=== PATIENT | female | born 1955 | race Caucasian/White ===

== ENCOUNTER 2016-09-17 07:11 | Day surgery (SDC) | payer BC ==
[~2016-09-17] VITALS: Ht 161.3 cm; Wt 68.0 kg
[~2016-09-17 07:11] MED LIST: ASPI-558 PO; ATOR20TA59 PO; FLUT16SP12 NS; LIDOCAINE 1% (10mg/ml) 2ml SDV INJ ONE; LORA-326 PO; MELO-273 PO; MULT1CAP47 PO; NORMAL SALINE 1,000 ML IV ONE; OMEP20CA10 PO
--- OUTSIDE RECORDS SUMMARY | 2016-09-17 07:16 | XMS REPORT | Continuity of Care Document ---
Author Author ROSSANA [facility] Organization [facility] Address Unknown Phone Unavailable Support Name Relationship Address Phone VIKTORIA ARROYO MD Caregiver [address] [place] [address] [place] [address] Unavailable SUSANNAH JIMENEZ FACS, MD Caregiver [address] [place] [address] [place] [address] Unavailable TULIO MOORE Next Of Kin [address] [place], [place] [id number] Insurance Providers Guarantor Angel Luis Moore Address [address] [place] [id number] Email DENIED/NO TO PORTAL Payer [facility] Policy Number [id number] Subscriber's Name Tulio Moore Relationship 01 Spouse Group Number [id number] Advance Directives Directive Response Recorded Date/Time Dr Chung Resuscitation Status Full Code 03/01/16 2:15pm Resuscitation Documents on File No 03/02/16 6:57am DPOA for Healthcare Only Yes 03/02/16 6:57am Living Will Yes 03/02/16 6:57am Problems No problem information available. Medications Current Home Medications Medication Dose Units Route Directions Days Qty Instructions Start Date Aspirin (Aspir 81) 81 Mg Tablet. 81 Mg Oral Daily 09/24/08 Atorvastatin Calcium 20 Mg Tablet 1 Tab Oral Bedtime 30 03/01/16 Fluticasone Propionate (Flonase) 16 Gm Ronceverte.susp 16 Gm Nasal Daily 09/24/08 Loratadine (Claritin) 10 Mg Tablet 10 Mg Oral As Needed 09/24/08 Meloxicam 7.5 Mg Tablet 1 Tab Oral Twice A Day 180 03/01/16 Multivitamins W-Minerals (Multivitamin) 1 Cap Capsule 1 Cap Oral Daily 09/24/08 Omeprazole 20 Mg Capsule. 1 Cap Oral Daily 90 03/01/16 Social History Social History Problem Response Recorded Date/Time Onset Date Status Reason for Hospitalization COLONOSCOPY 03/02/2016 9:55am Not Applicable Not Applicable Chewing Tobacco Status No 03/02/2016 7:04am Not Applicable Not Applicable Hx Substance Use No 03/02/2016 7:04am Not Applicable Not Applicable Hx Alcohol Use Y 1X/WEEK 03/02/2016 7:04am Not Applicable Not Applicable Has the pt used tobacco in the last 12 months No 03/02/2016 7:04am Not Applicable Not Applicable Query Response Start Date Stop Date Smoking Status Never smoker Hospital Discharge Instructions Instructions: Care Instructions: I was in the hospital because (patient own words): COLONOSCOPY Discharge Diet: As Tolerated Discharge Activity: Do NOT drive today Follow Up Appointments: Follow up with Dr. Jimenez as needed. Pending Lab / Results: Will be notified Patient Instructions: If biopsies performed during colonoscopy, results/recommendations will be mailed in about 2-3 weeks. If additional treatment is recommended, will call with recommendatins. Expected Signs/Symptoms: None Notify Physician If: Call physician if temperature is GREATER than 101.5, severe abdominal pain or severe rectal bleeding. During Business Hours:: Call [phone] After Business Hours:: Call [phone] (hospital) Pain Management/Treatment: Call Dr. Jimenez if increasing abdominal pain Wound/Incision Care: N/A Condition at time of discharge: Good Plan of Care Discharge Date 03/02/16 10:29am Instructions/Education Provided [facility] Prescriptions See Medication Section Functional Status Query Response Date Recorded Ability to complete ADL's impeded by No change March 02, 2016 6:57am Allergies, Adverse Reactions, Alerts Allergen Type Severity Reaction Status Last Updated Penicillin Allergy Intermediate RASH Active 09/23/08 Immunizations Query Response on File Recorded Date/Time Hx Influenza Vaccination No 03/02/16 7:04am Hx Pneumococcal Vaccination No 03/02/16 7:04am Hx Influenza Vaccination No 03/02/16 7:04am Vital Signs Acute Vital Signs Vital Response Date/Time Temperature (Fahrenheit) 97.4 deg F (96.8 - 99.1) 03/02/2016 9:50am Temperature (Calculated Celsius) 36.44816 degrees C (36.0 - 37.3) 03/02/2016 9:50am Temperature Source Temporal 03/02/2016 9:50am Pulse Rate (adult) 82 bpm (60 - 100) 03/02/2016 10:20am Respiratory Rate 15 breaths/min (10 - 20) 03/02/2016 10:20am O2 Sat by Pulse Oximetry 95 % (90 - 100) 03/02/2016 10:20am Oxygen Delivery Method Room Air 03/02/2016 10:20am Oxygen Flow Rate 6.00 L/min 03/02/2016 9:50am Blood Pressure 161/90 mm Hg 03/02/2016 10:20am Blood Pressure Source Automatic Cuff 03/02/2016 10:20am Height (Feet) 5 feet 03/02/2016 6:41am Height (Inches) 4.00 inches 03/02/2016 6:41am Weight (Kilograms) 78.200 kg 03/02/2016 6:41am Body Mass Index (BMI) 29.6 03/02/2016 6:41am Results No known relevant diagnostic tests, laboratory data and/or discharge summary. Procedures Procedure Status Date Provider(s) Colonoscopy Completed 03/02/16 SUSANNAH JIMENEZ MD, JHONNY, ALFREDO Encounters Encounter Location Arrival/Admit Date Discharge/Depart Date Attending Provider Departed [facility] 03/02/16 6:26am 03/02/16 10 :29am SUSANNAH JIMENEZ FACS, MD
--- OUTSIDE RECORDS SUMMARY | 2016-09-17 07:16 | XMS REPORT | Continuity of Care Document ---
Author Author [facility] Organization [facility] Address Unknown Phone Unavailable Allergies Medications Problems Procedures Results Encounters ACCT No. Visit Date/Time Discharge Status Pt. Type Provider Facility Loc./Unit Complaint [id number] 06/25/2013 08:52:00 06/25/2013 23 :59:59 [facility] Outpatient [id number] 05/20/2013 09:24:00 05/20/2013 23 :59:59 [facility] Outpatient
--- OUTSIDE RECORDS SUMMARY | 2016-09-17 07:16 | XMS REPORT | Referral Summary ---
Author Author [facility], [facility] Organization [facility] Address Unknown Phone Unavailable Care Team Providers Care Boiler Fitter Name Role Phone Pilarann marie Solomon Primary Care Physician [phone] Encounter Date(s): 05/15/16 - 05/15/16 [facility], [address] [place] [address] Discharge Diagnosis: Osteoarthritis Discharge Diagnosis: GERD (gastroesophageal reflux disease) Discharge Diagnosis: Hyperlipidemia Discharge Disposition: 01-Home or Self Care Attending Physician: Jimena Washington PA-C Admitting Physician: Jimena Washington PA-C Vital Signs Most recent to 1 oldest [Reference Range]: Apical Heart Rate 89 bpm [60-100 bpm] (05/15/16 9:04 AM) Blood Pressure 134/90 mmHg [90-140/60-90 mmHg] (05/15/16 9:04 AM) SpO2 97 % (05/15/16 9:04 AM) Problem List Condition Effective Dates Status Health Status Informant Solitary Active kidney(Confirmed) Elevated blood Active pressure(Confirmed) Endometriosis(Confir Active med) GERD Active (gastroesophageal reflux disease)(Confirmed) Hyperlipidemia(Confi Active rmed) Obesity(Confirmed) Active patient Osteoarthritis(Confi Active rmed) Allergies, Adverse Reactions, Alerts Substance Reaction Severity Status penicillin Active Medications Aspir 81 mg, Oral, Daily, 0 Refill(s) Start Date: 10/14/15 Status: Ordered atorvastatin 20 mg oral tablet 20 mg 1 tabs, Oral, Daily, # 90 tabs, 3 Refill(s), Pharmacy: [facility], 1 tabs Oral Daily Start Date: 05/15/16 Status: Ordered Benadryl See Instructions, 0 Refill(s) Start Date: 10/14/15 Status: Ordered Flonase 50 mcg/inh nasal spray 1 sprays, Nasal, BID, # 16 g, 0 Refill(s) Start Date: 08/06/14 Status: Ordered meloxicam 7.5 mg oral tablet 7.5 mg 1 tabs, Oral, BID, # 180 tabs, 1 Refill(s), Pharmacy: [facility], 1 tabs Oral BID Start Date: 05/15/16 Status: Ordered omeprazole 20 mg oral delayed release capsule 20 mg 1 caps, Oral, Daily, fax to [facility] at [phone], # 90 caps, 3 Refill(s), 1 caps Oral Daily,x90 days Start Date: 11/18/15 Status: Ordered Results No data available for this section Immunizations No data available for this section Procedures Procedure Date Related Diagnosis Body Site Colonoscopic polypectomy1 03/02/16 Colonoscopy 09/24/08 Colonoscopy TALYA/BSO 1Large tubular adenoma had to be "piecemealed out" at 10 centimeters. Recommend repeat colonoscopy in 6-12 months. Father and sister both positive for colon cancer. Social History Social History Type Response Smoking Status Never smoker Assessment and Plan Extracted from: Title: Office Visit Note- Med ck Author: Jimena Washington PA-C Date: Assessment/Plan GERD (gastroesophageal reflux disease) Continue on Prilosec at this time. Recheck in October at [facility]. Ordered: Periodic Comp Preventive Med 40 to 64 years Est [address] Hyperlipidemia Refilled Lipitor today. She would like to checkfasting labs at her [employer] in October. Continueto watch diet. Continue with baby ASA. Ordered: atorvastatin, 20 mg 1 tabs, Oral, Daily, # 90 tabs, 3 Refill(s), Pharmacy: [facility], 1 tabs Oral Daily Periodic Comp Preventive Med 40 to 64 years Est [address] Osteoarthritis May continue with Mobic. Refillssent. Ordered: meloxicam, 7.5 mg 1 tabs, Oral, BID, # 180 tabs, 1 Refill(s), Pharmacy: [facility], 1 tabs Oral BID Periodic Comp Preventive Med 40 to 64 years Est [address]
[2016-09-17 07:26] VITALS: BP 163/87; PULSE 75; RESP 13; TEMP 98.2; O2SAT 97; Ht 161.3 cm; Wt 68.0 kg
[2016-09-17] MEDS ORDERED: DIPH25CA84 PO (07:39)
[2016-09-17] MEDS ORDERED: LACT1CAP72 PO (07:39)
[2016-09-17] MEDS ORDERED: LYSI500T PO (07:39)
--- NOTE | 2016-09-17 08:41 | ANESPREOP ---
Anesthesia Record Date and Time DATE: 09/17/16 TIME: 08:39 Pre-Op Diagnosis hx of polyps Proposed Surgical Procedure COLONOSCOPY Allergies: Coded Allergies: Penicillins (Verified Allergy, Intermediate, RASH, 09/17/16) Ht/Wt/BMI Height: 5 ' 3.50 " Weight: 68.000 kg BMI: 26.1 kg/m2 Vital Signs Date Time Temp Pulse Resp B/P Pulse Ox O2 Delivery O2 Flow Rate FiO2 09/17/16 07:26 98.2 75 13 163/87 97 Room Air Medications Aspirin (Aspir 81) 81 Mg Tablet.dr, 81 MG PO DAILY, (Reported) Last Taken: on 09/09/16699 Atorvastatin Calcium (Atorvastatin Calcium) 20 Mg Tablet, 1 TAB PO HS, (Reported) Last Taken: on 09/16/162214 Diphenhydramine HCl (Benadryl) 25 Mg Capsule, 1 CAP PO HS PRN for PRN ORDERS, (Reported) Last Taken: on 09/16/162214 Fluticasone Propionate (Flonase) 16 Gm [place].susp, 16 GM NS DAILY, (Reported) Last Taken: on 09/16/16699 Lactobacillus Combo No.11 (Probiotic) 1 Each Cap.sprink, 1 TAB PO DAILY, (Reported) Last Taken: on 09/16/16699 Loratadine (Claritin) 10 Mg Tablet, 10 MG PO PRN , (Reported) Last Taken: on Unknown Date & Time Lysine (l-Lysine) 500 Mg Tablet, 1,000 MG PO DAILY, (Reported) Take 1 tablet, by mouth, 2 times a day. Last Taken: on 09/16/16699 Meloxicam (Meloxicam) 7.5 Mg Tablet, 1 TAB PO BID, (Reported) Last Taken: on 09/16/16699 Multivitamins W-Minerals (Multivitamin) 1 Cap Capsule, 1 CAP PO DAILY, (Reported) Last Taken: on 09/09/16 Omeprazole (Omeprazole) 20 Mg Capsule.dr, 1 CAP PO DAILY, (Reported) Last Taken: on 09/16/16699 Currently on Beta Kimberlee: No Medical/Surgical History Anesthesia PMH: Reports: *Hypertension (PER H&P-PT DENIES), Arthritis (OA PER H &P), Hyperlipidemia, Pneumonia (HX OF 1982), Reflux (PER H&P), Renal Disease ( SOLITARY KIDNEY PER H&P), Denies: Anesthesia Reactions (NO AIRWAY ISSUES), Cancer, Glaucoma, Malignant Hyperthermia, Sleep Apnea Smoking Status: Never smoker Has pt. smoked today?: No Use Chewing Tobacco?: No Second Hand Exposure: No Substance Use Type: does not use Substance last used: unknown Alcohol Intake: none Past Surgical History Orthopedic Surgeries: Yes - L FOOT BONE SPURR REMOVED Abdominal Surgeries: Yes - ABD. HYST. PER H&P Genitourinary Surgeries: Cardiac Surgeries: Endocrine Surgeries: Reproductive Surgeries: Yes - TALYA BSO PER H&P Neurological Surgeries: Ear Surgeries: Nose Surgeries: Throat Surgeries: - T+A Other Surgeries: Yes - COLONOSCOPY PER H&P Anesthesia Adverse Reactions: FOUND none Family Hx of Anesthesia Advers: none Hx of Motion Sickness: Yes Pertinent Findings EKG Rhythm: Sinus Rhythm Physical Exam Respiratory: Bilat breath sounds equal, Lungs clear Cardiovascular: FOUND Regular rate, rhythm, FOUND No murmur Airway Assessment Mallampati Score: II TMD: 3 Fingerbreadths Neck Extension: Good Overall Assessment: No Airway Concerns ASA: 2 Plan Anesthesia Plan: TIVA Discussion Discussed risks/options/alternatives of anesthesia and questions answered. Patient consents. Nursing pain assessment noted. Present: Spouse Attestation Statement Prior to the delivery of any anesthetic medication, I examined the patient, developed the plan, obtained the patient's consent and discussed the risk and benefits of the procedure with the patient/guardian. SLOAN CELESTE CRNA September 17, 2016 08:41
[2016-09-17] MEDS ORDERED: PROPOFOL 200mg 20 ML IV ONE (09:15)
[2016-09-17] MEDS ORDERED: LIDOCAINE 1% (10mg/ml) 2ml SDV ONE (09:15)
[2016-09-17] MEDS ORDERED: FENTANYL 100mcg/2ml INJECTION ONE (09:24)
[2016-09-17 09:34] VITALS: BP 110/56; PULSE 78; RESP 12; TEMP 98.4; O2SAT 97
--- NOTE | 2016-09-17 09:46 | ANESPO ---
Post-Op Note Date 09/17/16 Time: 09:45 Status Pt Participated in Evaluation: Pt participated in person Vital Signs Date Time Temp Pulse Resp B/P Pulse Ox O2 Delivery O2 Flow Rate FiO2 09/17/16 07:26 98.2 75 13 163/87 97 Room Air Respiratory Function: Airway patent, Regular respirations Cardiovascular Function: Regular pulse Mental Status: Alert/oriented Pain Level Intensity: 0 Hydration: Taking po fluids, IV infusing Complications during Recovery None apparent Post-Anesthesia Notes p[t. christiana. well Follow-Up Instructions Instructions Per Surgeon Additional Information none SLOAN CELESTE CRNA September 17, 2016 09:46
[2016-09-17 09:49] VITALS: BP 146/96; PULSE 75; RESP 16; O2SAT 98
--- NOTE | 2016-09-17 15:55 | OPNOTEF ---
DATE OF SERVICE 09/17/2016 SURGEON James Craven MD PREOPERATIVE DIAGNOSIS Personal history for sessile polyp requiring piecemeal snare polypectomy within rectum. POSTOPERATIVE DIAGNOSIS Personal history for sessile polyp requiring piecemeal snare polypectomy within rectum, normal colonoscopy. PROCEDURES Colonoscopy. ANESTHESIA TIVA BRIEF HISTORY/INDICATIONS Mrs. Moore is a 60-year-old female who about six months ago was found to have a large sessile polyp within the rectum at 10 cm from the anal verge. This polyp was removed in its entirety endoscopically via a piecemeal snare polypectomy technique. Secondary to the above indications, it was recommended to the patient that she should undergo a short-term followup. For completeness please refer to notes included in the patient's chart. FINDINGS Upon colonoscopy, fortunately there was no evidence for recurrence of her polyp within the rectal vault. Remaining colon was without evidence for angiodysplastic lesions, polyps, diverticula or lele malignancies. DESCRIPTION OF PROCEDURE After informed consent was obtained, the patient was brought to the endoscopy suite and placed on the table in the left lateral decubitus position. The patient subsequently underwent total intravenous anesthesia by the nurse sleeping car conductor per my request. Formal time-out was then completed. Next, a digital rectal examination was performed. Normal sphincter tone. No rectal masses were appreciated. An Olympus colonoscope was inserted in the anus and advanced through the lumen of the colon under direct visualization at all times until the cecum was ascertained. Triangulation of the teniae coli, ileocecal valve and appendiceal lumen were all visualized. The scope was then slowly withdrawn, again while maintaining visualization of the lumen at all times. As stated above, the entire colon was without evidence for angiodysplastic lesions, polyps, diverticula or lele malignancies. Once the colonoscope was withdrawn back into the rectal vault, the rectal vault was again carefully inspected. There was no evidence for recurrent polyp present. A J-maneuver was then performed. No worrisome perianal pathology was noted. Scope was allowed to straighten and withdrawn through the anal verge. The patient tolerated the procedure without difficulty and was sent back to the preop area in stable condition. Secondary to the absence of findings upon this colonoscopy, I would recommend that the patient undergo a repeat colonoscopy at a five year interval. MIA
== END 2016-09-17 10:04 | disposition home or self-care (01) ==
LOC: SCU 07:11
PROVIDERS: ATTEND Surgery
DX: Z09 Encounter for follow-up examination after completed treatment for conditions other than malignant neoplasm (principal); Z86.010 Personal history of colon polyps; Z80.0 Family history of malignant neoplasm of digestive organs
CPT/HCPCS: 45378; J2704; J3010; J7030